=== PATIENT | male | born 1965 | race Caucasian/White ===

== ENCOUNTER 2016-12-15 11:52 | Emergency (ER) | payer OTHER ==
[~2016-12-15] VITALS: Ht 177.8 cm; Wt 88.5 kg
[2016-12-15 12:28] LABS: BASOPHIL % 0.4 % (0-2); PLATELET COUNT 278 x10^3mcL (130-400); RED CELL DISTRIBUTION WIDTH 12.9 % (11.5-14.5)
[2016-12-15 12:40] LABS: CHLORIDE SERUM 105 mmol/L (98-107); CREATININE SERUM 1.1 mg/dL (0.7-1.3); GFR1 > 60 mL/min; GLUCOSE SERUM 109 mg/dL (74-106); POTASSIUM SERUM 3.7 mmol/L (3.5-5.1); SODIUM SERUM 141 mmol/L (136-145)
[2016-12-15 12:52] LABS: ALBUMIN 3.9 g/dL (3.4-5.0); ALKALINE PHOSPHATASE 75 U/L (46-116); ALT/SGPT 17 U/L (16-63); AST/SGOT 17 U/L (15-37); BILIRUBIN TOTAL 0.74 mg/dL (0.20-1.00); TOTAL PROTEIN, SERUM 7.3 g/dL (6.4-8.2)
[2016-12-15 12:53] LABS: C REACTIVE PROTEIN < 0.2 mg/dL (<=0.9); CK-MB 1.4 ng/mL (0-3.6); FREE T4 1.12 ng/dL (0.76-1.46); FREE THYROXINE INDEX 2.7 ug/dL (1.4-4.5); T4(THYROXINE) 7.7 ug/dL (4.7-13.3)
[2016-12-15 13:03] LABS: T3 TOTAL 1.39 ng/mL
[2016-12-15 13:18] LABS: ERYTHROCYTE SED RATE 8 mm/hr (0-20)
[2016-12-15 13:50] LABS: UA SPECIFIC GRAVITY 1.025 (1.005-1.035); microscopic required? YES; urine erythrocyte 3+ (NEGATIVE)
[2016-12-15 14:00] VITALS: BP 131/89
== END 2016-12-15 14:08 | disposition home or self-care (01) ==
LOC: ED 11:52
PROVIDERS: Specialist
DX: N23 Unspecified renal colic (principal); E66.9 Obesity, unspecified; M10.9 Gout, unspecified; R11.2 Nausea with vomiting, unspecified; R61 Generalized hyperhidrosis
CPT/HCPCS: 83880; 84439; J1170; J1885; J2405; J7030

== ENCOUNTER 2018-04-08 22:40 | Emergency (ER) | payer OTHER ==
[~2018-04-08] VITALS: Ht 177.8 cm; Wt 90.7 kg
[2018-04-08 22:54] VITALS: Ht 177.8 cm; Wt 90.7 kg
[2018-04-09 01:30] VITALS: BP 116/80
== END 2018-04-09 01:30 | disposition home or self-care (01) ==
LOC: ED 22:40
DX: M10.9 Gout, unspecified (principal)
CPT/HCPCS: J1885